=== PATIENT | male | born 1960 | race Caucasian/White ===

== ENCOUNTER 2016-05-30 21:08 | Inpatient (IN) | payer MEDICAID ==
[~2016-05-30] VITALS: Ht 175.3 cm; Wt 75.3 kg
[2016-05-30] MEDS ORDERED: SODIUM CHLORIDE 0.9% 1,000 ML IV ONE (22:25)
[2016-05-30 23:28] LABS: CHLORIDE 112 mEq/L (98-107); INDEX HEMOLYSI 1 (1-3); INDEX ICTERIC 1 (1-4); INDEX LIPEMIC 1 (1-3); INR 1.2; PROTHROMBIN TIME 12.4 sec
[2016-05-30 23:33] LABS: BASOPHILS % 1.1 % (0.0-2.0); EOSINOPHILS % 0.7 % (0.0-5.0); HEMATOCRIT. 29.6 % (42.0-52.0); HEMOGLOBIN. 10.1 g/dL (14.0-18.0); MEAN CORPUSCULAR HEMOGLOBIN 28.3 pg (28.0-32.0); MEAN CORPUSCULAR HGB CONC 34.1 g/dL (31.0-37.0); MEAN PLATELET VOLUME 8.2 fl (7.4-10.4); NEUTROPHILS % 83.2 % (40.0-76.0); RED BLOOD CELL COUNT 3.56 mill/uL (4.7-6.1); RED CELL DISTRIBUTION WIDTH 20.4 % (11.6-14.6)
[2016-05-30 23:34] LABS: AMMONIA 19 uMol/L (<32)
[2016-05-30 23:36] LABS: ALANINE AMINOTRANSFERASE 19 IU/L (13-61); ALBUMIN 2.3 g/dL (3.4-5.0); ANION GAP 18; CALCIUM 8.2 mg/dL (8.5-10.1); CARBON DIOXIDE 20 mEq/L (21-32); UREA NITROGEN BLOOD 72 mg/dL (7-21); eGFR 33 mL/min (>60)
[2016-05-30 23:39] LABS: DIFFERENTIAL COMMENT 1
[2016-05-31 00:54] LABS: CLARITY URINE CLEAR (CLEAR); COLOR URINE YELLOW (YELLOW); GLUCOSE URINE NEGATIVE (NEGATIVE); KETONES URINE NEGATIVE (NEGATIVE); LEUKOCYTE ESTERASE URINE NEGATIVE (NEGATIVE); NITRITE URINE NEGATIVE (NEGATIVE); OCCULT BLOOD URINE 2+ (NEGATIVE); PH URINE 6.5 (4.5-8.0); PROTEIN URINE NEGATIVE (NEGATIVE); SPECIFIC GRAVITY URINE 1.009 (1.005-1.030); UROBILINOGEN URINE 0.2 E.U./dL (0.2-1.0)
[2016-05-31 00:56] LABS: BACTERIA URINE NONE SEEN; CALCIUM PHOSPHATE CRYSTALS UR NONE SEEN /lpf; RBC URINE 15-25 /hpf (0-2); SQUAMOUS EPITHELIAL CELL URINE NONE SEEN /lpf (RARE/1+); WAXY CASTS URINE NONE SEEN /lpf; WBC URINE NONE SEEN /hpf (0-2); YEAST URINE NONE SEEN
[2016-05-31] MEDS ORDERED: VANCOMYCIN 1 G PREMIX 200 ML IV ONE (01:00)
[2016-05-31] MEDS ORDERED: PIPERACILLIN/TAZ 3.375G PREMIX 50 ML IV ONE (01:00)
[2016-05-31 01:09] LABS: *AMPHETAMINES SCREEN URINE NEGATIVE (NEGATIVE); *BARBITURATES SCREEN URINE NEGATIVE (NEGATIVE); *BENZODIAZEPINES SCREEN URINE NEGATIVE (NEGATIVE); *COCAINE SCREEN URINE NEGATIVE (NEGATIVE); CANNABINOID URINE SCREEN NEGATIVE (NEGATIVE); ECSTASY MDMA SCREEN URINE NEGATIVE (NEGATIVE); METHADONE URINE SCREEN NEGATIVE (NEGATIVE); OPIATES URINE SCREEN PRESUMTIVE POSITIVE (NEGATIVE); PHENCYCLIDINE URINE SCREEN NEGATIVE (NEGATIVE)
[2016-05-31 04:00] VITALS: BP 153/89
[2016-05-31 05:01] VITALS: BP 153/89
[2016-05-31 08:00] VITALS: BP 154/91
[2016-05-31 08:00] LABS: BASOPHILS % 0.2 % (0.0-2.0); EOSINOPHILS % 0.8 % (0.0-5.0); HEMATOCRIT. 28.7 % (42.0-52.0); HEMOGLOBIN. 9.7 g/dL (14.0-18.0); LYMPHOCYTES % 12.5 % (20.0-50.0); MEAN CORPUSCULAR HEMOGLOBIN 28.2 pg (28.0-32.0); MEAN PLATELET VOLUME 6.8 fl (7.4-10.4); MONOCYTES % 0.8 % (2.0-8.0); NEUTROPHILS % 85.7 % (40.0-76.0); RED BLOOD CELL COUNT 3.45 mill/uL (4.7-6.1); RED CELL DISTRIBUTION WIDTH 19.9 % (11.6-14.6); WHITE BLOOD COUNT 7.6 x1000/uL (4.5-11.0)
[2016-05-31 08:02] LABS: DIFFERENTIAL COMMENT 1; PLATELET 22 x1000/uL (130-400)
[2016-05-31 08:49] LABS: CALCIUM 7.9 mg/dL (8.5-10.1)
[2016-05-31 08:52] LABS: THYROID STIMULATING HORMONE 0.53 uIU/mL (0.36-3.74)
[2016-05-31] MEDS ORDERED: PANTOPRAZOLE SODIUM 40 MG/VIAL IV SCH (09:00)
[2016-05-31] MEDS: PIPERACILLIN/TAZ 2.25G PREMIX 50 ML IV SCH ×2 (09:28→18:09)
[2016-05-31 09:32] LABS: INDEX HEMOLYSI 1 (1-3)
[2016-05-31 09:47] LABS: VITAMIN B12 SERUM 641 pg/mL (211-911)
[2016-05-31] MEDS: DEXT 5%/0.9% NACL 1,000 ML IV SCH (11:21)
[2016-05-31] MEDS ORDERED: METO50TA5 PO (11:53)
[2016-05-31] MEDS ORDERED: HYDR-519 PO (11:53)
[2016-05-31] MEDS ORDERED: MORP30TA66 PO (11:53)
[2016-05-31] MEDS ORDERED: DOCU-138 PO (11:53)
[2016-05-31] MEDS ORDERED: ATOR20TA65 PO (11:53)
[2016-05-31] MEDS ORDERED: METF500T4 PO (11:53)
[2016-05-31] MEDS ORDERED: OMEP20CA10 PO (11:53)
[2016-05-31 12:00] VITALS: BP 158/91
[2016-05-31] MEDS ORDERED: NALOXONE HCL 0.4 MG/ML 1ML VIAL IV NR (15:15)
[2016-05-31 16:00] VITALS: BP 153/89
[2016-05-31 20:00] VITALS: BP 151/89
[2016-06-01] VITALS (48 sets, daily range): BP systolic 123–175; BP diastolic 62–97
[2016-06-01] MEDS: HYDRALAZINE 20MG/ML VIAL IV PRN ×4 (00:22→22:50)
[2016-06-01] MEDS: DEXT 5%/0.9% NACL 1,000 ML IV SCH ×2 (01:00→12:32)
[2016-06-01] MEDS: PIPERACILLIN/TAZ 2.25G PREMIX 50 ML IV SCH ×3 (02:52→18:48)
[2016-06-01] MEDS: VANCOMYCIN 1 G PREMIX 200 ML IV SCH (02:52)
[2016-06-01] MEDS: FAMOTIDINE 20MG/2ML VIAL IV SCH ×2 (08:24→20:05)
[2016-06-01 09:59] LABS: BASOPHILS % 0.4 % (0.0-2.0); EOSINOPHILS % 0.5 % (0.0-5.0); HEMATOCRIT. 27.2 % (42.0-52.0); HEMOGLOBIN. 9.2 g/dL (14.0-18.0); LYMPHOCYTES % 15.7 % (20.0-50.0); MEAN CORPUSCULAR HEMOGLOBIN 27.7 pg (28.0-32.0); MEAN CORPUSCULAR HGB CONC 33.9 g/dL (31.0-37.0); MEAN CORPUSCULAR VOLUME 81.9 fL (80.0-94.0); MEAN PLATELET VOLUME 8.3 fl (7.4-10.4); MONOCYTES % 1.1 % (2.0-8.0); NEUTROPHILS % 82.3 % (40.0-76.0); RED BLOOD CELL COUNT 3.33 mill/uL (4.7-6.1); RED CELL DISTRIBUTION WIDTH 19.8 % (11.6-14.6); WHITE BLOOD COUNT 5.6 x1000/uL (4.5-11.0)
[2016-06-01 10:02] LABS: DIFFERENTIAL COMMENT 1; PLATELET 18 x1000/uL (130-400)
[2016-06-01 10:12] LABS: CALCIUM 7.8 mg/dL (8.5-10.1)
[2016-06-01] MEDS: MORPHINE SULFATE 4 MG/ML CPJ (NOT FOR IM USE) IV PRN ×3 (11:12→20:05)
[2016-06-01] MEDS: DEXT 5%/0.45% NACL 1000ML 1,000 ML IV SCH (13:09)
[2016-06-01] MEDS ORDERED: DEXTROSE 50% WATER 50ML SYRINGE IV PRN (14:00)
[2016-06-01] MEDS ORDERED: POTASSIUM CHLORIDE INJ 40 MEQ in DEXT 5% WATER 250 ML IV ONE (15:00)
[2016-06-01] MEDS ORDERED: KCL 20MEQ/100ML PREMIX 100 ML IV SCH (15:00)
[2016-06-01] MEDS: BLOOD SUGAR DIAGNOSTIC STRIP TEST SCH ×2 (16:30→21:53)
[2016-06-01] MEDS: INSULIN LISPRO 100 UNITS/ML SUBCUT SCH ×2 (17:00→21:54)
[2016-06-01] MEDS: OXYCODONE HCL 10MG TABLET SR 12HR PO SCH (21:00)
[2016-06-01 21:02] LABS: PLATELET 29 x1000/uL (130-400)
[2016-06-02] VITALS (38 sets, daily range): BP systolic 112–156; BP diastolic 34–88
[2016-06-02] MEDS: MORPHINE SULFATE 4 MG/ML CPJ (NOT FOR IM USE) IV PRN ×2 (00:15→06:40)
[2016-06-02] MEDS: PIPERACILLIN/TAZ 2.25G PREMIX 50 ML IV SCH ×3 (01:58→17:23)
[2016-06-02] MEDS: VANCOMYCIN 1 G PREMIX 200 ML IV SCH (02:53)
[2016-06-02 05:58] LABS: HEMATOCRIT. 23.5 % (42.0-52.0); MEAN CORPUSCULAR HEMOGLOBIN 28.6 pg (28.0-32.0); RED BLOOD CELL COUNT 2.79 mill/uL (4.7-6.1); RED CELL DISTRIBUTION WIDTH 19.5 % (11.6-14.6); WHITE BLOOD COUNT 2.2 x1000/uL (4.5-11.0)
[2016-06-02] MEDS: BLOOD SUGAR DIAGNOSTIC STRIP TEST SCH ×4 (06:00→20:17)
[2016-06-02] MEDS: INSULIN LISPRO 100 UNITS/ML SUBCUT SCH ×4 (06:00→20:17)
[2016-06-02 06:07] LABS: DIFFERENTIAL COMMENT 1; PLATELET 28 x1000/uL (130-400)
[2016-06-02] MEDS: DEXT 5%/0.45% NACL 1000ML 1,000 ML IV SCH ×2 (06:44→20:11)
[2016-06-02 07:24] LABS: CALCIUM 7.5 mg/dL (8.5-10.1)
[2016-06-02 08:04] LABS: ANISOCYTOSIS 1+; PLATELET ESTIMATE MARKEDLY DECREASED
[2016-06-02] MEDS: OXYCODONE HCL 10MG TABLET SR 12HR PO SCH ×2 (09:00→20:17)
[2016-06-02] MEDS: FAMOTIDINE 20MG/2ML VIAL IV SCH ×2 (09:14→20:11)
[2016-06-03] VITALS (12 sets, daily range): BP systolic 120–149; BP diastolic 69–92
[2016-06-03] MEDS: PIPERACILLIN/TAZ 2.25G PREMIX 50 ML IV SCH ×2 (01:15→13:40)
[2016-06-03] MEDS: VANCOMYCIN 1 G PREMIX 200 ML IV SCH (01:57)
[2016-06-03] MEDS: DEXT 5%/0.45% NACL 1000ML 1,000 ML IV SCH ×2 (02:30→15:06)
[2016-06-03 06:25] LABS: HEMOGLOBIN. 7.2 g/dL (14.0-18.0); MEAN CORPUSCULAR HEMOGLOBIN 27.7 pg (28.0-32.0); MEAN CORPUSCULAR VOLUME 81.4 fL (80.0-94.0); MEAN PLATELET VOLUME 7.9 fl (7.4-10.4); RED BLOOD CELL COUNT 2.58 mill/uL (4.7-6.1); RED CELL DISTRIBUTION WIDTH 18.9 % (11.6-14.6)
[2016-06-03] MEDS: BLOOD SUGAR DIAGNOSTIC STRIP TEST SCH ×4 (06:36→21:08)
[2016-06-03 07:44] LABS: CALCIUM 7.2 mg/dL (8.5-10.1); URIC ACID 13.8 mg/dL (2.6-7.2)
[2016-06-03] MEDS: INSULIN LISPRO 100 UNITS/ML SUBCUT SCH ×4 (08:10→21:00)
[2016-06-03 08:23] LABS: DIFFERENTIAL COMMENT 1
[2016-06-03 08:24] LABS: WHITE BLOOD COUNT 0.6 x1000/uL (4.5-11.0)
[2016-06-03 08:25] LABS: PLATELET 17 x1000/uL (130-400)
[2016-06-03] MEDS: OXYCODONE HCL 10MG TABLET SR 12HR PO SCH ×2 (09:00→21:07)
[2016-06-03 10:56] LABS: ANISOCYTOSIS 1+; PLATELET ESTIMATE MARKEDLY DECREASED
[2016-06-03] MEDS ORDERED: POTASSIUM CHLORIDE 20MEQ TABLET SR PO NR (11:30)
[2016-06-03] MEDS: FAMOTIDINE 20MG/2ML VIAL IV SCH ×2 (11:40→21:01)
[2016-06-03] MEDS ORDERED: POTASSIUM CHLORIDE INJ 40 MEQ in DEXT 5% WATER 500 ML IV NR (13:00)
[2016-06-03] MEDS ORDERED: BISACODYL 5MG TABLET PO PRN (14:45)
[2016-06-03] MEDS: DOCUSATE SODIUM 100MG CAPSULE PO SCH ×2 (15:06→17:00)
[2016-06-03 15:46] LABS: MEAN CORPUSCULAR HEMOGLOBIN 28.6 pg (28.0-32.0); MEAN CORPUSCULAR HGB CONC 34.6 g/dL (31.0-37.0); MEAN CORPUSCULAR VOLUME 82.6 fL (80.0-94.0); RED BLOOD CELL COUNT 2.28 mill/uL (4.7-6.1); RED CELL DISTRIBUTION WIDTH 18.8 % (11.6-14.6)
[2016-06-03 15:51] LABS: HEMOGLOBIN. 6.5 g/dL (14.0-18.0); WHITE BLOOD COUNT 0.5 x1000/uL (4.5-11.0)
[2016-06-03 15:52] LABS: DIFFERENTIAL COMMENT 1; HEMATOCRIT. 18.8 % (42.0-52.0); PLATELET 35 x1000/uL (130-400)
[2016-06-03 16:13] LABS: PLATELET ESTIMATE MARKEDLY DECREASED
[2016-06-03 16:14] LABS: ANISOCYTOSIS 1+
[2016-06-03] MEDS: VANCOMYCIN 750 MG PREMIX 150 ML IV SCH (21:11)
[2016-06-04] VITALS (12 sets, daily range): BP systolic 125–146; BP diastolic 79–90
[2016-06-04] MEDS: PIPERACILLIN/TAZ 2.25G PREMIX 50 ML IV SCH ×4 (02:17→23:18)
[2016-06-04] MEDS: DEXT 5%/0.45% NACL 1000ML 1,000 ML IV SCH ×2 (03:29→10:07)
[2016-06-04 07:02] LABS: CALCIUM 7.4 mg/dL (8.5-10.1); MAGNESIUM 1.6 mg/dL (1.8-2.4); PHOSPHORUS 4.1 mg/dL (2.5-4.9)
[2016-06-04] MEDS: BLOOD SUGAR DIAGNOSTIC STRIP TEST SCH ×4 (07:40→21:54)
[2016-06-04 07:42] LABS: HEMATOCRIT. 22.6 % (42.0-52.0); HEMOGLOBIN. 7.8 g/dL (14.0-18.0); MEAN CORPUSCULAR HEMOGLOBIN 28.3 pg (28.0-32.0); MEAN CORPUSCULAR HGB CONC 34.3 g/dL (31.0-37.0); MEAN CORPUSCULAR VOLUME 82.5 fL (80.0-94.0); MEAN PLATELET VOLUME 8.4 fl (7.4-10.4); RED BLOOD CELL COUNT 2.74 mill/uL (4.7-6.1); RED CELL DISTRIBUTION WIDTH 17.4 % (11.6-14.6)
[2016-06-04 07:47] LABS: DIFFERENTIAL COMMENT 1
[2016-06-04 07:51] LABS: PLATELET 26 x1000/uL (130-400); WHITE BLOOD COUNT 0.4 x1000/uL (4.5-11.0)
[2016-06-04] MEDS: INSULIN LISPRO 100 UNITS/ML SUBCUT SCH ×4 (08:10→21:00)
[2016-06-04 09:52] LABS: ANISOCYTOSIS 1+; PLATELET ESTIMATE MARKEDLY DECREASED
[2016-06-04] MEDS: FAMOTIDINE 20MG/2ML VIAL IV SCH ×2 (10:06→22:06)
[2016-06-04] MEDS: OXYCODONE HCL 10MG TABLET SR 12HR PO SCH ×2 (10:06→22:05)
[2016-06-04] MEDS: DOCUSATE SODIUM 100MG CAPSULE PO SCH ×2 (10:06→18:48)
[2016-06-04] MEDS ORDERED: POTASSIUM CHLORIDE 20MEQ TABLET SR PO NR ×2 (12:45→20:30)
[2016-06-04] MEDS: MAGNESIUM GLUCONATE 500MG TABLET PO SCH ×2 (16:55→18:48)
[2016-06-04] MEDS: VANCOMYCIN 750 MG PREMIX 150 ML IV SCH (22:06)
[2016-06-05] VITALS (10 sets, daily range): BP systolic 112–145; BP diastolic 68–94
[2016-06-05] MEDS: PIPERACILLIN/TAZ 2.25G PREMIX 50 ML IV SCH ×4 (04:07→23:04)
[2016-06-05] MEDS: DEXT 5%/0.45% NACL 1000ML 1,000 ML IV SCH ×2 (04:07→18:11)
[2016-06-05 05:59] LABS: ALANINE AMINOTRANSFERASE 16 IU/L (13-61); ALBUMIN 2.3 g/dL (3.4-5.0); ANION GAP 13; CALCIUM 7.6 mg/dL (8.5-10.1); CARBON DIOXIDE 24 mEq/L (21-32); CHLORIDE 109 mEq/L (98-107); INDEX HEMOLYSI 1 (1-3); INDEX ICTERIC 1 (1-4); INDEX LIPEMIC 1 (1-3); UREA NITROGEN BLOOD 33 mg/dL (7-21); eGFR 39 mL/min (>60)
[2016-06-05] MEDS: BLOOD SUGAR DIAGNOSTIC STRIP TEST SCH ×4 (06:01→21:40)
[2016-06-05 06:21] LABS: HEMATOCRIT. 26.5 % (42.0-52.0); HEMOGLOBIN. 9.2 g/dL (14.0-18.0); MEAN CORPUSCULAR HEMOGLOBIN 28.4 pg (28.0-32.0); MEAN CORPUSCULAR HGB CONC 34.8 g/dL (31.0-37.0); MEAN CORPUSCULAR VOLUME 81.6 fL (80.0-94.0); RED BLOOD CELL COUNT 3.25 mill/uL (4.7-6.1); RED CELL DISTRIBUTION WIDTH 16.1 % (11.6-14.6)
[2016-06-05 06:28] LABS: PLATELET 18 x1000/uL (130-400); WHITE BLOOD COUNT 0.5 x1000/uL (4.5-11.0)
[2016-06-05 06:29] LABS: DIFFERENTIAL COMMENT 1
[2016-06-05] MEDS: INSULIN LISPRO 100 UNITS/ML SUBCUT SCH ×4 (07:22→21:00)
[2016-06-05] MEDS: FAMOTIDINE 20MG/2ML VIAL IV SCH ×2 (08:19→21:42)
[2016-06-05] MEDS: DOCUSATE SODIUM 100MG CAPSULE PO SCH ×2 (08:19→16:51)
[2016-06-05] MEDS: MAGNESIUM GLUCONATE 500MG TABLET PO SCH ×2 (08:19→16:51)
[2016-06-05] MEDS: OXYCODONE HCL 10MG TABLET SR 12HR PO SCH ×2 (08:21→21:42)
[2016-06-05 08:44] LABS: PLATELET ESTIMATE MARKEDLY DECREASED
[2016-06-05] MEDS ORDERED: POTASSIUM CHLORIDE 20MEQ TABLET SR PO SCH (11:45)
[2016-06-05] MEDS ORDERED: ALLOPURINOL XX SCH (15:00)
[2016-06-05] MEDS: ALLOPURINOL 100 MG TABLET PO SCH (16:51)
[2016-06-05] MEDS: VANCOMYCIN 750 MG PREMIX 150 ML IV SCH (21:42)
[2016-06-05] MEDS: FILGRASTIM 480 MCG/0.8 ML SUBCUT SCH (22:39)
[2016-06-06] VITALS: BP 140/87
[2016-06-06 04:00] VITALS: BP 139/94
[2016-06-06] MEDS: DEXT 5%/0.45% NACL 1000ML 1,000 ML IV SCH ×2 (04:46→17:49)
[2016-06-06] MEDS: PIPERACILLIN/TAZ 2.25G PREMIX 50 ML IV SCH ×4 (04:46→22:29)
[2016-06-06] MEDS: BLOOD SUGAR DIAGNOSTIC STRIP TEST SCH ×4 (06:01→20:56)
[2016-06-06 06:45] LABS: HEMATOCRIT. 23.2 % (42.0-52.0); MEAN CORPUSCULAR HEMOGLOBIN 28.7 pg (28.0-32.0); MEAN CORPUSCULAR HGB CONC 34.5 g/dL (31.0-37.0); MEAN CORPUSCULAR VOLUME 83.2 fL (80.0-94.0); MEAN PLATELET VOLUME 6.9 fl (7.4-10.4); RED BLOOD CELL COUNT 2.79 mill/uL (4.7-6.1); RED CELL DISTRIBUTION WIDTH 16.1 % (11.6-14.6)
[2016-06-06 07:55] LABS: CALCIUM 7.8 mg/dL (8.5-10.1); MAGNESIUM 1.6 mg/dL (1.8-2.4); PHOSPHORUS 2.7 mg/dL (2.5-4.9)
[2016-06-06 08:01] VITALS: BP 137/74
[2016-06-06] MEDS: INSULIN LISPRO 100 UNITS/ML SUBCUT SCH ×4 (08:10→20:56)
[2016-06-06 08:20] LABS: DIFFERENTIAL COMMENT 1; WHITE BLOOD COUNT 0.3 x1000/uL (4.5-11.0)
[2016-06-06 09:06] LABS: ANISOCYTOSIS 1+; PLATELET 30 x1000/uL (130-400); PLATELET ESTIMATE MARKEDLY DECREASED
[2016-06-06] MEDS: FAMOTIDINE 20MG/2ML VIAL IV SCH ×2 (09:21→20:28)
[2016-06-06] MEDS: DOCUSATE SODIUM 100MG CAPSULE PO SCH ×2 (09:21→17:00)
[2016-06-06] MEDS: OXYCODONE HCL 10MG TABLET SR 12HR PO SCH ×2 (09:23→20:29)
[2016-06-06] MEDS: MAGNESIUM GLUCONATE 500MG TABLET PO SCH ×2 (09:32→17:00)
[2016-06-06] MEDS: ALLOPURINOL 100 MG TABLET PO SCH ×2 (09:32→17:00)
[2016-06-06 12:00] VITALS: BP 123/76
[2016-06-06] MEDS ORDERED: POTASSIUM CHLORIDE 20 MEQ/PACKET PO SCH ×2 (14:00→20:00)
[2016-06-06 16:00] VITALS: BP 137/81
[2016-06-06] MEDS ORDERED: MAGNESIUM SULFATE 3 GM in DEXT 5% WATER 96 ML IV NR (17:00)
[2016-06-06 20:00] VITALS: BP 125/74
[2016-06-06] MEDS: VANCOMYCIN 1 G PREMIX 200 ML IV SCH (20:13)
[2016-06-06] MEDS: FILGRASTIM 480 MCG/0.8 ML SUBCUT SCH (20:28)
[2016-06-07] VITALS: BP 120/79
[2016-06-07] MEDS: PIPERACILLIN/TAZ 2.25G PREMIX 50 ML IV SCH ×4 (03:54→21:44)
[2016-06-07 04:00] VITALS: BP 147/80
[2016-06-07] MEDS: BLOOD SUGAR DIAGNOSTIC STRIP TEST SCH ×4 (05:52→20:54)
[2016-06-07 06:05] LABS: HEMATOCRIT. 24.6 % (42.0-52.0); HEMOGLOBIN. 8.5 g/dL (14.0-18.0); MEAN CORPUSCULAR HEMOGLOBIN 28.5 pg (28.0-32.0); MEAN CORPUSCULAR HGB CONC 34.3 g/dL (31.0-37.0); RED BLOOD CELL COUNT 2.97 mill/uL (4.7-6.1); RED CELL DISTRIBUTION WIDTH 16.2 % (11.6-14.6)
[2016-06-07 06:44] LABS: PLATELET 27 x1000/uL (130-400); WHITE BLOOD COUNT 0.4 x1000/uL (4.5-11.0)
[2016-06-07 06:45] LABS: DIFFERENTIAL COMMENT 1
[2016-06-07 07:08] LABS: CALCIUM 7.8 mg/dL (8.5-10.1); URIC ACID 3.1 mg/dL (2.6-7.2)
[2016-06-07 08:00] VITALS: BP 119/85
[2016-06-07] MEDS: INSULIN LISPRO 100 UNITS/ML SUBCUT SCH ×4 (08:10→20:54)
[2016-06-07 08:20] LABS: ANISOCYTOSIS 1+; PLATELET ESTIMATE MARKEDLY DECREASED
[2016-06-07] MEDS: DOCUSATE SODIUM 100MG CAPSULE PO SCH ×2 (09:33→17:32)
[2016-06-07] MEDS: MAGNESIUM GLUCONATE 500MG TABLET PO SCH ×2 (09:33→17:32)
[2016-06-07] MEDS: ALLOPURINOL 100 MG TABLET PO SCH (09:33)
[2016-06-07] MEDS: FAMOTIDINE 20MG/2ML VIAL IV SCH ×2 (09:34→20:54)
[2016-06-07] MEDS: DEXT 5%/0.45% NACL 1000ML 1,000 ML IV SCH (09:36)
[2016-06-07] MEDS: THROAT LOZENGES-BENZOCAINE/MENTH/CETYLPYRD CL LOZENGES MM PRN ×3 (09:49→21:43)
[2016-06-07 12:13] VITALS: BP 132/82
[2016-06-07] MEDS: POTASSIUM CHLORIDE 20MEQ TABLET SR PO SCH ×2 (13:02→17:32)
[2016-06-07 16:00] VITALS: BP 141/81
[2016-06-07 20:00] VITALS: BP 133/96
[2016-06-07] MEDS: VANCOMYCIN 1 G PREMIX 200 ML IV SCH (20:02)
[2016-06-07] MEDS: FILGRASTIM 480 MCG/0.8 ML SUBCUT SCH (20:54)
[2016-06-08] VITALS (8 sets, daily range): BP systolic 121–150; BP diastolic 75–99
[2016-06-08] MEDS: DEXT 5%/0.45% NACL 1000ML 1,000 ML IV SCH (02:54)
[2016-06-08] MEDS: PIPERACILLIN/TAZ 2.25G PREMIX 50 ML IV SCH ×3 (04:55→15:27)
[2016-06-08] MEDS: BLOOD SUGAR DIAGNOSTIC STRIP TEST SCH ×4 (06:27→20:56)
[2016-06-08 06:30] LABS: HEMATOCRIT. 23.9 % (42.0-52.0); HEMOGLOBIN. 8.3 g/dL (14.0-18.0); MEAN CORPUSCULAR HEMOGLOBIN 28.4 pg (28.0-32.0); MEAN CORPUSCULAR HGB CONC 34.7 g/dL (31.0-37.0); MEAN CORPUSCULAR VOLUME 81.6 fL (80.0-94.0); MEAN PLATELET VOLUME 7.2 fl (7.4-10.4); RED BLOOD CELL COUNT 2.93 mill/uL (4.7-6.1); RED CELL DISTRIBUTION WIDTH 15.8 % (11.6-14.6)
[2016-06-08 07:22] LABS: DIFFERENTIAL COMMENT 1; MAGNESIUM 1.7 mg/dL (1.8-2.4); PHOSPHORUS 1.9 mg/dL (2.5-4.9); PLATELET 14 x1000/uL (130-400); WHITE BLOOD COUNT 0.4 x1000/uL (4.5-11.0)
[2016-06-08] MEDS: INSULIN LISPRO 100 UNITS/ML SUBCUT SCH ×4 (07:39→21:00)
[2016-06-08] MEDS: FAMOTIDINE 20MG/2ML VIAL IV SCH (08:50)
[2016-06-08] MEDS: POTASSIUM CHLORIDE 20MEQ TABLET SR PO SCH ×2 (08:50→18:19)
[2016-06-08] MEDS: DOCUSATE SODIUM 100MG CAPSULE PO SCH ×2 (08:50→18:19)
[2016-06-08] MEDS: MAGNESIUM GLUCONATE 500MG TABLET PO SCH ×2 (08:50→18:19)
[2016-06-08 11:02] LABS: PLATELET ESTIMATE MARKEDLY DECREASED
[2016-06-08 11:04] LABS: ANISOCYTOSIS 1+
[2016-06-08] MEDS ORDERED: MAGNESIUM 1 G PREMIX 100 ML IV NR (13:00)
[2016-06-08] MEDS: POTASSIUM PHOS,M-BASIC-D-BASIC 30 MMOL in DEXT 5% WATER 500 ML IV NR ×2 (14:57→20:48)
[2016-06-08] MEDS: THROAT LOZENGES-BENZOCAINE/MENTH/CETYLPYRD CL LOZENGES MM PRN (19:41)
[2016-06-08] MEDS: VANCOMYCIN 1 G PREMIX 200 ML IV SCH (20:48)
[2016-06-08] MEDS: FILGRASTIM 480 MCG/0.8 ML SUBCUT SCH (20:49)
[2016-06-08] MEDS ORDERED: MAGNESIUM 2 G PREMIX 50 ML IV NR (21:00)
[2016-06-09] VITALS (7 sets, daily range): BP systolic 15–148; BP diastolic 85–91
[2016-06-09] MEDS: PIPERACILLIN/TAZ 2.25G PREMIX 50 ML IV SCH ×4 (00:07→16:29)
[2016-06-09] MEDS: DEXT 5%/0.45% NACL KCL 20MEQ/L 1,000 ML IV SCH ×2 (00:07→16:29)
[2016-06-09] MEDS: BLOOD SUGAR DIAGNOSTIC STRIP TEST SCH ×4 (05:59→21:00)
[2016-06-09 06:40] LABS: CALCIUM 8.1 mg/dL (8.5-10.1)
[2016-06-09 07:08] LABS: HEMATOCRIT. 23.5 % (42.0-52.0); HEMOGLOBIN. 8.2 g/dL (14.0-18.0); MEAN CORPUSCULAR HEMOGLOBIN 28.4 pg (28.0-32.0); MEAN CORPUSCULAR VOLUME 81.1 fL (80.0-94.0); MEAN PLATELET VOLUME 7.1 fl (7.4-10.4); RED CELL DISTRIBUTION WIDTH 15.5 % (11.6-14.6)
[2016-06-09] MEDS: INSULIN LISPRO 100 UNITS/ML SUBCUT SCH ×4 (07:40→21:00)
[2016-06-09] MEDS: PANTOPRAZOLE SODIUM 40 MG/VIAL IV SCH (09:00)
[2016-06-09] MEDS: POTASSIUM CHLORIDE 20MEQ TABLET SR PO SCH ×2 (09:00→16:29)
[2016-06-09] MEDS: DOCUSATE SODIUM 100MG CAPSULE PO SCH ×2 (09:00→16:29)
[2016-06-09] MEDS: MAGNESIUM GLUCONATE 500MG TABLET PO SCH ×2 (09:00→16:29)
[2016-06-09 09:13] LABS: WHITE BLOOD COUNT 0.4 x1000/uL (4.5-11.0)
[2016-06-09 09:14] LABS: DIFFERENTIAL COMMENT 1; PLATELET 39 x1000/uL (130-400)
[2016-06-09] MEDS: THROAT LOZENGES-BENZOCAINE/MENTH/CETYLPYRD CL LOZENGES MM PRN ×2 (10:21→16:37)
[2016-06-09 15:48] LABS: PLATELET ESTIMATE MARKEDLY DECREASED
[2016-06-09] MEDS: VANCOMYCIN 1 G PREMIX 200 ML IV SCH (23:54)
[2016-06-10] VITALS: BP 140/82
[2016-06-10] MEDS: PIPERACILLIN/TAZ 2.25G PREMIX 50 ML IV SCH ×3 (00:06→09:02)
[2016-06-10 04:00] VITALS: BP 137/92
[2016-06-10] MEDS: FILGRASTIM 480 MCG/0.8 ML SUBCUT SCH ×2 (06:32→21:19)
[2016-06-10] MEDS: BLOOD SUGAR DIAGNOSTIC STRIP TEST SCH ×5 (06:38→21:19)
[2016-06-10 07:29] LABS: HEMATOCRIT. 23.6 % (42.0-52.0); HEMOGLOBIN. 8.2 g/dL (14.0-18.0); MEAN CORPUSCULAR HEMOGLOBIN 28.2 pg (28.0-32.0); MEAN CORPUSCULAR HGB CONC 34.7 g/dL (31.0-37.0); MEAN CORPUSCULAR VOLUME 81.3 fL (80.0-94.0); RED CELL DISTRIBUTION WIDTH 15.4 % (11.6-14.6)
[2016-06-10 08:00] VITALS: BP 142/78
[2016-06-10 08:10] LABS: CALCIUM 8.3 mg/dL (8.5-10.1); MAGNESIUM 1.8 mg/dL (1.8-2.4); PHOSPHORUS 2.1 mg/dL (2.5-4.9)
[2016-06-10] MEDS: INSULIN LISPRO 100 UNITS/ML SUBCUT SCH ×5 (08:10→21:19)
[2016-06-10 08:19] LABS: DIFFERENTIAL COMMENT 1
[2016-06-10 08:22] LABS: PLATELET 26 x1000/uL (130-400); WHITE BLOOD COUNT 0.5 x1000/uL (4.5-11.0)
[2016-06-10] MEDS: POTASSIUM CHLORIDE 20MEQ TABLET SR PO SCH ×2 (09:02→16:11)
[2016-06-10] MEDS: MAGNESIUM GLUCONATE 500MG TABLET PO SCH ×2 (09:02→16:11)
[2016-06-10] MEDS: DOCUSATE SODIUM 100MG CAPSULE PO SCH ×2 (09:02→16:11)
[2016-06-10] MEDS: PANTOPRAZOLE SODIUM 40 MG/VIAL IV SCH (09:02)
[2016-06-10 10:30] LABS: PLATELET ESTIMATE MARKEDLY DECREASED
[2016-06-10 12:00] VITALS: BP 145/87
[2016-06-10] MEDS: THROAT LOZENGES-BENZOCAINE/MENTH/CETYLPYRD CL LOZENGES MM PRN (12:10)
[2016-06-10] MEDS: DEXT 5%/0.45% NACL KCL 20MEQ/L 1,000 ML IV SCH (13:51)
[2016-06-10] MEDS: PIPERACILLIN/TAZ 3.375G PREMIX 50 ML IV SCH ×2 (15:27→21:19)
[2016-06-10 16:00] VITALS: BP 133/88
[2016-06-10] MEDS ORDERED: POTASSIUM PHOS,M-BASIC-D-BASIC 15 MMOL in DEXT 5% WATER 245 ML IV NR (18:30)
[2016-06-10 20:00] VITALS: BP 146/89
[2016-06-10] MEDS: VANCOMYCIN 1 G PREMIX 200 ML IV SCH (21:18)
[2016-06-10] MEDS: ASCORBIC ACID 250 MG TABLET PO SCH (21:19)
[2016-06-11] VITALS (9 sets, daily range): BP systolic 112–143; BP diastolic 73–98
[2016-06-11] MEDS: PIPERACILLIN/TAZ 3.375G PREMIX 50 ML IV SCH ×4 (04:28→21:10)
[2016-06-11 06:42] LABS: HEMOGLOBIN. 8.1 g/dL (14.0-18.0); MEAN CORPUSCULAR HEMOGLOBIN 28.9 pg (28.0-32.0); MEAN CORPUSCULAR HGB CONC 35.3 g/dL (31.0-37.0); MEAN CORPUSCULAR VOLUME 81.8 fL (80.0-94.0); MEAN PLATELET VOLUME 7.3 fl (7.4-10.4); RED BLOOD CELL COUNT 2.82 mill/uL (4.7-6.1); RED CELL DISTRIBUTION WIDTH 15.5 % (11.6-14.6)
[2016-06-11 06:44] LABS: CALCIUM 8.1 mg/dL (8.5-10.1)
[2016-06-11 07:11] LABS: DIFFERENTIAL COMMENT 1
[2016-06-11 07:14] LABS: PLATELET 19 x1000/uL (130-400); WHITE BLOOD COUNT 0.7 x1000/uL (4.5-11.0)
[2016-06-11] MEDS: ZINC SULFATE 220 MG ( 50 ) CAPSULE PO SCH (08:59)
[2016-06-11] MEDS: PANTOPRAZOLE SODIUM 40 MG/VIAL IV SCH (08:59)
[2016-06-11] MEDS: POTASSIUM CHLORIDE 20MEQ TABLET SR PO SCH ×2 (08:59→17:00)
[2016-06-11] MEDS: MAGNESIUM GLUCONATE 500MG TABLET PO SCH ×2 (08:59→17:29)
[2016-06-11] MEDS: ASCORBIC ACID 250 MG TABLET PO SCH ×2 (08:59→21:10)
[2016-06-11] MEDS: DOCUSATE SODIUM 100MG CAPSULE PO SCH ×2 (08:59→17:00)
[2016-06-11] MEDS: MULTIVITAMINS,THER W-MINERALS TABLET PO SCH (09:01)
[2016-06-11 10:13] LABS: ANISOCYTOSIS 1+; PLATELET ESTIMATE MARKEDLY DECREASED
[2016-06-11] MEDS ORDERED: VISCOUS LIDOCAINE 2% 15 ML UDC MM PRN (13:00)
[2016-06-11] MEDS ORDERED: LIDOCAINE HCL 20 MG/ML 100ML BOTTLE MM PRN (13:03)
[2016-06-11] MEDS: INSULIN LISPRO 100 UNITS/ML SUBCUT SCH ×3 (13:10→21:00)
[2016-06-11] MEDS: BLOOD SUGAR DIAGNOSTIC STRIP TEST SCH ×3 (13:12→21:10)
[2016-06-11] MEDS: THROAT LOZENGES-BENZOCAINE/MENTH/CETYLPYRD CL LOZENGES MM PRN (13:38)
[2016-06-11] MEDS ORDERED: LATANOPROST 0.005% OPHTH DROPS 2.5ML BOTHEYE SCH (21:00)
[2016-06-11] MEDS: NYSTATIN 100,000 UNITS/ML 5ML UDC SSW SCH (21:10)
[2016-06-11] MEDS: DEXT 5%/0.45% NACL KCL 20MEQ/L 1,000 ML IV SCH (21:10)
[2016-06-11] MEDS: VANCOMYCIN 1 G PREMIX 200 ML IV SCH (21:57)
[2016-06-12] VITALS (10 sets, daily range): BP systolic 109–133; BP diastolic 69–86
[2016-06-12] MEDS: PIPERACILLIN/TAZ 3.375G PREMIX 50 ML IV SCH ×4 (03:19→21:52)
[2016-06-12] MEDS: NYSTATIN 100,000 UNITS/ML 5ML UDC SSW SCH ×3 (05:31→21:21)
[2016-06-12] MEDS: BLOOD SUGAR DIAGNOSTIC STRIP TEST SCH ×4 (06:59→21:21)
[2016-06-12] MEDS: INSULIN LISPRO 100 UNITS/ML SUBCUT SCH ×4 (07:42→21:00)
[2016-06-12 08:42] LABS: HEMOGLOBIN. 7.3 g/dL (14.0-18.0); MEAN CORPUSCULAR HEMOGLOBIN 28.9 pg (28.0-32.0); MEAN CORPUSCULAR HGB CONC 35.5 g/dL (31.0-37.0); MEAN CORPUSCULAR VOLUME 81.6 fL (80.0-94.0); MEAN PLATELET VOLUME 6.7 fl (7.4-10.4); RED BLOOD CELL COUNT 2.52 mill/uL (4.7-6.1); RED CELL DISTRIBUTION WIDTH 15.6 % (11.6-14.6)
[2016-06-12 08:46] LABS: HEMATOCRIT. 20.5 % (42.0-52.0); WHITE BLOOD COUNT 0.8 x1000/uL (4.5-11.0)
[2016-06-12 08:47] LABS: DIFFERENTIAL COMMENT 1; PLATELET 25 x1000/uL (130-400)
[2016-06-12] MEDS: DOCUSATE SODIUM 100MG CAPSULE PO SCH ×2 (09:00→16:26)
[2016-06-12] MEDS: ASCORBIC ACID 250 MG TABLET PO SCH ×2 (09:49→21:20)
[2016-06-12] MEDS: PANTOPRAZOLE SODIUM 40 MG/VIAL IV SCH (09:49)
[2016-06-12] MEDS: MULTIVITAMINS,THER W-MINERALS TABLET PO SCH (09:49)
[2016-06-12] MEDS: MAGNESIUM GLUCONATE 500MG TABLET PO SCH ×2 (09:49→17:08)
[2016-06-12] MEDS: POTASSIUM CHLORIDE 20MEQ TABLET SR PO SCH ×2 (09:49→17:08)
[2016-06-12] MEDS: ZINC SULFATE 220 MG ( 50 ) CAPSULE PO SCH (09:49)
[2016-06-12 11:43] LABS: ANISOCYTOSIS 1+; PLATELET ESTIMATE MARKEDLY DECREASED
[2016-06-12] MEDS ORDERED: ACETAMINOPHEN 325MG TABLET PO PRN (16:30)
[2016-06-12] MEDS: VANCOMYCIN 1 G PREMIX 200 ML IV SCH (20:01)
[2016-06-12] MEDS: DEXT 5%/0.45% NACL KCL 20MEQ/L 1,000 ML IV SCH (20:01)
[2016-06-13] VITALS (8 sets, daily range): BP systolic 110–135; BP diastolic 61–88
[2016-06-13] MEDS ORDERED: FILGRASTIM 480 MCG/0.8 ML SUBCUT NR
[2016-06-13] MEDS: PIPERACILLIN/TAZ 3.375G PREMIX 50 ML IV SCH ×4 (03:14→20:54)
[2016-06-13] MEDS: HYDROCODONE/ACETAMINOPHEN 5/325MG TABLET PO PRN ×2 (04:18→10:27)
[2016-06-13 05:58] LABS: CALCIUM 8.3 mg/dL (8.5-10.1)
[2016-06-13] MEDS: NYSTATIN 100,000 UNITS/ML 5ML UDC SSW SCH ×3 (06:01→21:05)
[2016-06-13 06:39] LABS: HEMATOCRIT. 24.7 % (42.0-52.0); HEMOGLOBIN. 8.6 g/dL (14.0-18.0); MEAN CORPUSCULAR HEMOGLOBIN 28.7 pg (28.0-32.0); MEAN CORPUSCULAR HGB CONC 34.9 g/dL (31.0-37.0); MEAN CORPUSCULAR VOLUME 82.3 fL (80.0-94.0); MEAN PLATELET VOLUME 6.7 fl (7.4-10.4); RED BLOOD CELL COUNT 3.01 mill/uL (4.7-6.1); RED CELL DISTRIBUTION WIDTH 15.5 % (11.6-14.6)
[2016-06-13] MEDS: BLOOD SUGAR DIAGNOSTIC STRIP TEST SCH ×4 (06:47→20:54)
[2016-06-13 07:34] LABS: DIFFERENTIAL COMMENT 1; PLATELET 20 x1000/uL (130-400); WHITE BLOOD COUNT 1.4 x1000/uL (4.5-11.0)
[2016-06-13] MEDS: INSULIN LISPRO 100 UNITS/ML SUBCUT SCH ×4 (08:10→20:54)
[2016-06-13 08:30] LABS: PLATELET ESTIMATE MARKEDLY DECREASED
[2016-06-13] MEDS: ASCORBIC ACID 250 MG TABLET PO SCH ×2 (10:25→20:54)
[2016-06-13] MEDS: ZINC SULFATE 220 MG ( 50 ) CAPSULE PO SCH (10:26)
[2016-06-13] MEDS: POTASSIUM CHLORIDE 20MEQ TABLET SR PO SCH ×2 (10:26→17:32)
[2016-06-13] MEDS: MAGNESIUM GLUCONATE 500MG TABLET PO SCH ×2 (10:26→17:31)
[2016-06-13] MEDS: DOCUSATE SODIUM 100MG CAPSULE PO SCH ×2 (10:27→17:00)
[2016-06-13] MEDS: MULTIVITAMINS,THER W-MINERALS TABLET PO SCH (10:28)
[2016-06-13] MEDS: PANTOPRAZOLE SODIUM 40 MG/VIAL IV SCH (10:28)
[2016-06-13] MEDS: DEXT 5%/0.45% NACL KCL 20MEQ/L 1,000 ML IV SCH (13:25)
[2016-06-13] MEDS: FILGRASTIM 480 MCG/0.8 ML SUBCUT SCH (21:48)
[2016-06-14] VITALS: BP 128/81
[2016-06-14] MEDS: PIPERACILLIN/TAZ 3.375G PREMIX 50 ML IV SCH ×4 (02:42→21:20)
[2016-06-14 04:00] VITALS: BP 130/89
[2016-06-14] MEDS: NYSTATIN 100,000 UNITS/ML 5ML UDC SSW SCH ×3 (05:25→21:10)
[2016-06-14] MEDS ORDERED: VANCOMYCIN 750 MG PREMIX 150 ML IV SCH (06:00)
[2016-06-14] MEDS: BLOOD SUGAR DIAGNOSTIC STRIP TEST SCH ×4 (07:09→21:22)
[2016-06-14 08:00] VITALS: BP 125/84
[2016-06-14] MEDS: INSULIN LISPRO 100 UNITS/ML SUBCUT SCH ×4 (08:10→21:00)
[2016-06-14] MEDS: DOCUSATE SODIUM 100MG CAPSULE PO SCH ×2 (09:00→16:00)
[2016-06-14] MEDS: PANTOPRAZOLE SODIUM 40 MG/VIAL IV SCH (10:39)
[2016-06-14] MEDS: MULTIVITAMINS,THER W-MINERALS TABLET PO SCH (10:40)
[2016-06-14] MEDS: ZINC SULFATE 220 MG ( 50 ) CAPSULE PO SCH (10:40)
[2016-06-14] MEDS: POTASSIUM CHLORIDE 20MEQ TABLET SR PO SCH ×2 (10:40→16:00)
[2016-06-14] MEDS: MAGNESIUM GLUCONATE 500MG TABLET PO SCH ×2 (10:44→16:00)
[2016-06-14] MEDS: ASCORBIC ACID 250 MG TABLET PO SCH ×2 (10:44→21:10)
[2016-06-14 12:00] VITALS: BP 130/87
[2016-06-14 12:48] LABS: HEMATOCRIT. 24.2 % (42.0-52.0); HEMOGLOBIN. 8.4 g/dL (14.0-18.0); MEAN CORPUSCULAR HEMOGLOBIN 28.8 pg (28.0-32.0); MEAN CORPUSCULAR HGB CONC 34.9 g/dL (31.0-37.0); MEAN CORPUSCULAR VOLUME 82.4 fL (80.0-94.0); MEAN PLATELET VOLUME 6.4 fl (7.4-10.4); RED BLOOD CELL COUNT 2.93 mill/uL (4.7-6.1); RED CELL DISTRIBUTION WIDTH 15.1 % (11.6-14.6)
[2016-06-14 12:58] LABS: DIFFERENTIAL COMMENT 1; PLATELET 33 x1000/uL (130-400); WHITE BLOOD COUNT 1.9 x1000/uL (4.5-11.0)
[2016-06-14 16:00] VITALS: BP 134/82
[2016-06-14] MEDS: DEXT 5%/0.45% NACL KCL 20MEQ/L 1,000 ML IV SCH ×2 (16:03→21:09)
[2016-06-14 16:20] LABS: HEMATOCRIT. 24.2 % (42.0-52.0); HEMOGLOBIN. 8.5 g/dL (14.0-18.0); MEAN CORPUSCULAR HEMOGLOBIN 28.4 pg (28.0-32.0); MEAN CORPUSCULAR HGB CONC 34.9 g/dL (31.0-37.0); MEAN CORPUSCULAR VOLUME 81.3 fL (80.0-94.0); MEAN PLATELET VOLUME 6.7 fl (7.4-10.4); RED BLOOD CELL COUNT 2.98 mill/uL (4.7-6.1); RED CELL DISTRIBUTION WIDTH 15.2 % (11.6-14.6); WHITE BLOOD COUNT 2.1 x1000/uL (4.5-11.0)
[2016-06-14 16:34] LABS: DIFFERENTIAL COMMENT 1
[2016-06-14 16:36] LABS: PLATELET 31 x1000/uL (130-400)
[2016-06-14 16:40] LABS: CALCIUM 8.4 mg/dL (8.5-10.1)
[2016-06-14 17:23] LABS: PLATELET ESTIMATE MARKEDLY DECREASED
[2016-06-14 20:00] VITALS: BP 143/107
[2016-06-14] MEDS: FILGRASTIM 480 MCG/0.8 ML SUBCUT SCH (21:22)
[2016-06-14 21:37] LABS: PLATELET ESTIMATE MARKEDLY DECREASED
[2016-06-15] VITALS: BP 114/79
[2016-06-15 04:00] VITALS: BP 123/79
[2016-06-15 05:40] LABS: HEMATOCRIT. 26.3 % (42.0-52.0); HEMOGLOBIN. 9.1 g/dL (14.0-18.0); MEAN CORPUSCULAR HGB CONC 34.7 g/dL (31.0-37.0); MEAN CORPUSCULAR VOLUME 80.6 fL (80.0-94.0); MEAN PLATELET VOLUME 6.4 fl (7.4-10.4); RED BLOOD CELL COUNT 3.26 mill/uL (4.7-6.1); RED CELL DISTRIBUTION WIDTH 15.3 % (11.6-14.6); WHITE BLOOD COUNT 2.3 x1000/uL (4.5-11.0)
[2016-06-15] MEDS: BLOOD SUGAR DIAGNOSTIC STRIP TEST SCH ×4 (06:30→21:08)
[2016-06-15] MEDS: PIPERACILLIN/TAZ 3.375G PREMIX 50 ML IV SCH ×4 (06:30→21:07)
[2016-06-15] MEDS: NYSTATIN 100,000 UNITS/ML 5ML UDC SSW SCH ×3 (06:30→21:07)
[2016-06-15 06:42] LABS: DIFFERENTIAL COMMENT 1; PLATELET 30 x1000/uL (130-400)
[2016-06-15] MEDS: INSULIN LISPRO 100 UNITS/ML SUBCUT SCH ×4 (07:32→21:19)
[2016-06-15 08:00] VITALS: BP 121/96
[2016-06-15] MEDS: PANTOPRAZOLE SODIUM 40 MG/VIAL IV SCH (08:52)
[2016-06-15] MEDS: POTASSIUM CHLORIDE 20MEQ TABLET SR PO SCH ×2 (08:52→17:21)
[2016-06-15] MEDS: ZINC SULFATE 220 MG ( 50 ) CAPSULE PO SCH (08:53)
[2016-06-15] MEDS: MAGNESIUM GLUCONATE 500MG TABLET PO SCH ×2 (08:53→17:21)
[2016-06-15] MEDS: DOCUSATE SODIUM 100MG CAPSULE PO SCH ×3 (08:53→17:00)
[2016-06-15] MEDS: MULTIVITAMINS,THER W-MINERALS TABLET PO SCH (08:53)
[2016-06-15] MEDS: ASCORBIC ACID 250 MG TABLET PO SCH ×2 (08:53→21:07)
[2016-06-15 10:35] LABS: PLATELET ESTIMATE MARKEDLY DECREASED
[2016-06-15 10:36] LABS: ANISOCYTOSIS 1+
[2016-06-15 12:00] VITALS: BP 130/81
[2016-06-15] MEDS: DEXT 5%/0.45% NACL KCL 20MEQ/L 1,000 ML IV SCH (13:40)
[2016-06-15 16:00] VITALS: BP 140/91
[2016-06-15 20:00] VITALS: BP 147/92
[2016-06-15] MEDS: FILGRASTIM 480 MCG/0.8 ML SUBCUT SCH (21:25)
[2016-06-15] MEDS: HYDROCODONE/ACETAMINOPHEN 5/325MG TABLET PO PRN (23:58)
[2016-06-16] VITALS (16 sets, daily range): BP systolic 96–134; BP diastolic 61–91
[2016-06-16] MEDS: HYDROCODONE/ACETAMINOPHEN 5/325MG TABLET PO PRN (00:01)
[2016-06-16] MEDS: MORPHINE SULFATE 2 MG/ML CPJ (NOT FOR IM USE) IV PRN ×3 (01:39→23:47)
[2016-06-16] MEDS: PIPERACILLIN/TAZ 3.375G PREMIX 50 ML IV SCH ×4 (02:19→22:27)
[2016-06-16] MEDS: NYSTATIN 100,000 UNITS/ML 5ML UDC SSW SCH ×3 (06:04→22:25)
[2016-06-16] MEDS: INSULIN LISPRO 100 UNITS/ML SUBCUT SCH ×4 (06:09→21:00)
[2016-06-16] MEDS: BLOOD SUGAR DIAGNOSTIC STRIP TEST SCH ×4 (06:09→22:26)
[2016-06-16 07:05] LABS: CALCIUM 8.7 mg/dL (8.5-10.1)
[2016-06-16 07:18] LABS: HEMATOCRIT. 22.8 % (42.0-52.0); HEMOGLOBIN. 7.8 g/dL (14.0-18.0); MEAN CORPUSCULAR HEMOGLOBIN 28.3 pg (28.0-32.0); MEAN CORPUSCULAR HGB CONC 34.1 g/dL (31.0-37.0); MEAN CORPUSCULAR VOLUME 83.1 fL (80.0-94.0); MEAN PLATELET VOLUME 6.6 fl (7.4-10.4); RED BLOOD CELL COUNT 2.74 mill/uL (4.7-6.1); RED CELL DISTRIBUTION WIDTH 15.3 % (11.6-14.6); WHITE BLOOD COUNT 2.9 x1000/uL (4.5-11.0)
[2016-06-16 08:08] LABS: DIFFERENTIAL COMMENT 1; PLATELET 20 x1000/uL (130-400)
[2016-06-16] MEDS: POTASSIUM CHLORIDE 20MEQ TABLET SR PO SCH ×2 (08:56→17:01)
[2016-06-16] MEDS: ASCORBIC ACID 250 MG TABLET PO SCH ×2 (08:56→22:25)
[2016-06-16] MEDS: MAGNESIUM GLUCONATE 500MG TABLET PO SCH ×2 (08:56→17:01)
[2016-06-16] MEDS: PANTOPRAZOLE SODIUM 40 MG/VIAL IV SCH (08:56)
[2016-06-16] MEDS: MULTIVITAMINS,THER W-MINERALS TABLET PO SCH (08:57)
[2016-06-16] MEDS: ZINC SULFATE 220 MG ( 50 ) CAPSULE PO SCH (08:57)
[2016-06-16] MEDS: DEXT 5%/0.45% NACL KCL 20MEQ/L 1,000 ML IV SCH (08:57)
[2016-06-16] MEDS: DOCUSATE SODIUM 100MG CAPSULE PO SCH ×2 (08:58→17:00)
[2016-06-16 11:43] LABS: NUCLEATED RED BLOOD CELLS 1 /100 WBC; PLATELET ESTIMATE MARKEDLY DECREASED
[2016-06-16 17:29] LABS: HEMATOCRIT 29.6 % (42.0-52.0); HEMOGLOBIN 10.3 g/dL (14.0-18.0); MEAN CORPUSCULAR HEMOGLOBIN 28.7 pg (28.0-32.0); MEAN CORPUSCULAR HGB CONC 34.8 g/dL (31.0-37.0); MEAN CORPUSCULAR VOLUME 82.6 fL (80.0-94.0); RED BLOOD CELL COUNT 3.58 mill/uL (4.7-6.1); RED CELL DISTRIBUTION WIDTH 15.4 % (11.6-14.6); WHITE BLOOD COUNT 4.7 x1000/uL (4.5-11.0)
[2016-06-16 17:38] LABS: PLATELET 17 x1000/uL (130-400)
[2016-06-16] MEDS: FILGRASTIM 480 MCG/0.8 ML SUBCUT SCH (22:26)
[2016-06-17] VITALS (8 sets, daily range): BP systolic 118–130; BP diastolic 65–89
[2016-06-17] MEDS: DEXT 5%/0.45% NACL KCL 20MEQ/L 1,000 ML IV SCH (05:26)
[2016-06-17] MEDS: NYSTATIN 100,000 UNITS/ML 5ML UDC SSW SCH ×3 (05:26→21:15)
[2016-06-17] MEDS: BLOOD SUGAR DIAGNOSTIC STRIP TEST SCH ×4 (05:36→21:14)
[2016-06-17 06:21] LABS: HEMATOCRIT. 26.6 % (42.0-52.0); HEMOGLOBIN. 9.3 g/dL (14.0-18.0); MEAN CORPUSCULAR HEMOGLOBIN 28.9 pg (28.0-32.0); MEAN CORPUSCULAR HGB CONC 35.1 g/dL (31.0-37.0); MEAN CORPUSCULAR VOLUME 82.4 fL (80.0-94.0); RED BLOOD CELL COUNT 3.23 mill/uL (4.7-6.1); RED CELL DISTRIBUTION WIDTH 15.3 % (11.6-14.6); WHITE BLOOD COUNT 4.4 x1000/uL (4.5-11.0)
[2016-06-17 06:30] LABS: DIFFERENTIAL COMMENT 1
[2016-06-17] MEDS: MORPHINE SULFATE 2 MG/ML CPJ (NOT FOR IM USE) IV PRN ×2 (07:02→15:39)
[2016-06-17 07:09] LABS: ALBUMIN 2.4 g/dL (3.4-5.0); ANION GAP 13; CALCIUM 8.9 mg/dL (8.5-10.1); CARBON DIOXIDE 23 mEq/L (21-32); CHLORIDE 108 mEq/L (98-107); INDEX HEMOLYSI 1 (1-3); INDEX ICTERIC 1 (1-4); INDEX LIPEMIC 1 (1-3); UREA NITROGEN BLOOD 21 mg/dL (7-21)
[2016-06-17 07:12] LABS: ALANINE AMINOTRANSFERASE 21 IU/L (13-61); eGFR 29 mL/min (>60)
[2016-06-17] MEDS: INSULIN LISPRO 100 UNITS/ML SUBCUT SCH ×4 (08:10→21:00)
[2016-06-17 08:20] LABS: ANISOCYTOSIS 1+; PLATELET 36 x1000/uL (130-400); PLATELET ESTIMATE MARKEDLY DECREASED
[2016-06-17] MEDS: ASCORBIC ACID 250 MG TABLET PO SCH ×2 (08:45→21:12)
[2016-06-17] MEDS: DOCUSATE SODIUM 100MG CAPSULE PO SCH ×3 (08:45→16:21)
[2016-06-17] MEDS: PANTOPRAZOLE SODIUM 40 MG/VIAL IV SCH (08:45)
[2016-06-17] MEDS: MAGNESIUM GLUCONATE 500MG TABLET PO SCH ×2 (08:45→17:44)
[2016-06-17] MEDS: ZINC SULFATE 220 MG ( 50 ) CAPSULE PO SCH (08:45)
[2016-06-17] MEDS: POTASSIUM CHLORIDE 20MEQ TABLET SR PO SCH ×2 (08:45→17:44)
[2016-06-17] MEDS: MULTIVITAMINS,THER W-MINERALS TABLET PO SCH (08:45)
[2016-06-17] MEDS: SODIUM CHLORIDE 0.45% 1,000 ML IV SCH (16:20)
[2016-06-17] MEDS ORDERED: MORPHINE SULFATE 2 MG/ML CPJ (NOT FOR IM USE) IV ONE (16:45)
[2016-06-17] MEDS: HYDROCODONE/ACETAMINOPHEN 5/325MG TABLET PO PRN (18:31)
[2016-06-17] MEDS: FILGRASTIM 480 MCG/0.8 ML SUBCUT SCH (21:12)
[2016-06-18] VITALS: BP 114/77
[2016-06-18] MEDS: MORPHINE SULFATE 2 MG/ML CPJ (NOT FOR IM USE) IV PRN ×3 (00:38→15:00)
[2016-06-18] MEDS: SODIUM CHLORIDE 0.45% 1,000 ML IV SCH ×2 (02:39→11:52)
[2016-06-18] MEDS: HYDROCODONE/ACETAMINOPHEN 5/325MG TABLET PO PRN (02:48)
[2016-06-18 04:00] VITALS: BP 120/82
[2016-06-18 06:23] LABS: CALCIUM 9.2 mg/dL (8.5-10.1)
[2016-06-18] MEDS: NYSTATIN 100,000 UNITS/ML 5ML UDC SSW SCH ×2 (06:24→13:21)
[2016-06-18] MEDS: INSULIN LISPRO 100 UNITS/ML SUBCUT SCH ×2 (07:05→12:07)
[2016-06-18] MEDS: BLOOD SUGAR DIAGNOSTIC STRIP TEST SCH ×2 (07:05→12:07)
[2016-06-18 08:00] VITALS: BP 121/75
[2016-06-18] MEDS: DOCUSATE SODIUM 100MG CAPSULE PO SCH (08:01)
[2016-06-18] MEDS: ZINC SULFATE 220 MG ( 50 ) CAPSULE PO SCH (08:28)
[2016-06-18] MEDS: POTASSIUM CHLORIDE 20MEQ TABLET SR PO SCH (08:28)
[2016-06-18] MEDS: ASCORBIC ACID 250 MG TABLET PO SCH (08:28)
[2016-06-18] MEDS: MULTIVITAMINS,THER W-MINERALS TABLET PO SCH (08:28)
[2016-06-18] MEDS: MAGNESIUM GLUCONATE 500MG TABLET PO SCH (08:28)
[2016-06-18] MEDS: PANTOPRAZOLE SODIUM 40 MG/VIAL IV SCH (08:28)
[2016-06-18 12:00] VITALS: BP 119/65
[2016-06-18 12:45] LABS: HEMATOCRIT. 27.6 % (42.0-52.0); HEMOGLOBIN. 9.4 g/dL (14.0-18.0); MEAN CORPUSCULAR HEMOGLOBIN 27.9 pg (28.0-32.0); MEAN CORPUSCULAR HGB CONC 34.2 g/dL (31.0-37.0); MEAN CORPUSCULAR VOLUME 81.7 fL (80.0-94.0); MEAN PLATELET VOLUME 7.8 fl (7.4-10.4); PLATELET 66 x1000/uL (130-400); RED BLOOD CELL COUNT 3.38 mill/uL (4.7-6.1); RED CELL DISTRIBUTION WIDTH 15.5 % (11.6-14.6); WHITE BLOOD COUNT 5.8 x1000/uL (4.5-11.0)
[2016-06-18 12:46] LABS: DIFFERENTIAL COMMENT 1
[2016-06-18 13:46] LABS: PLATELET ESTIMATE DECREASED
[2016-06-18 14:03] VITALS: BP 119/65
[2016-06-18 16:00] VITALS: BP 153/90
== END 2016-06-18 17:02 | disposition home or self-care (01) | DRG 660 ==
LOC: ER 21:21 → 7WST 05-31 00:18 → MICUSO 06-01 01:50 → 7WST 06-02 18:15
PROVIDERS: ADMIT Internal Medicine; ATTEND Internal Medicine
PROC: 30233R1 Transfusion of Nonautologous Platelets into Peripheral Vein, Percutaneous Approach (ICD-10-PCS; principal; 2016-06-01)
PROC: 30233N1 Transfusion of Nonautologous Red Blood Cells into Peripheral Vein, Percutaneous Approach (ICD-10-PCS; 2016-06-01)
DX: D61.810 Antineoplastic chemotherapy induced pancytopenia (principal); G92 Toxic encephalopathy; N17.9 Acute kidney failure, unspecified; E87.0 Hyperosmolality and hypernatremia; C85.90 Non-Hodgkin lymphoma, unspecified, unspecified site; E44.0 Moderate protein-calorie malnutrition; E11.22 Type 2 diabetes mellitus with diabetic chronic kidney disease; I50.30 Unspecified diastolic (congestive) heart failure; E78.00 Pure hypercholesterolemia, unspecified; E78.5 Hyperlipidemia, unspecified; N18.9 Chronic kidney disease, unspecified; E87.6 Hypokalemia; I13.0 Hypertensive heart and chronic kidney disease with heart failure and stage 1 through stage 4 chronic kidney disease, or unspecified chronic kidney disease; I25.10 Atherosclerotic heart disease of native coronary artery without angina pectoris; T45.1X5A Adverse effect of antineoplastic and immunosuppressive drugs, initial encounter; R53.81 Other malaise; Z79.891 Long term (current) use of opiate analgesic; Z68.24 Body mass index [BMI] 24.0-24.9, adult; Y92.89 Other specified places as the place of occurrence of the external cause
CPT/HCPCS: 36415; 70450; 70551; 71010; 74000; 80048; 80053; 80202; 80305; 81001; 82140; 82270; 82607; 82962; 83010; 83605; 83615; 83735; 84100; 84443; 84550; 85007; 85025; 85027; 85044; 85610; 86850; 86900; 86920; 86945; 87040; 92610; 93971; 96365; 96375; 97162; 97530; 99285; A4565; A6261; C1893; C9113; J0360; J1442; J1815; J2270; J2310; J2543; J3370; J3475; J3480; J3490; J7030; J7040; J7042; J7050; J7060; J7070; P9016; P9034